=== PATIENT | female | born 1965 | race African-American/Black ===

== ENCOUNTER 2017-09-11 15:15 | Emergency (ER) | payer SELFPAY ==
[2017-09-11 15:18] VITALS: BP 124/88; PULSE 94; RESP 16; TEMP 98.6; O2SAT 98
--- NOTE | 2017-09-11 16:11 | RADRPT ---
EXAM DATE/TIME: 09/11/2017 15:36 [place] COMPARISON: No previous studies available for comparison. INDICATIONS : Left foot pain after dropping object on foot. MEDICAL HISTORY : None. SURGICAL HISTORY : None. ENCOUNTER: Initial ACUITY: 1 week PAIN SCORE: 8/10 LOCATION: Left middle dorsal surface. FINDINGS: The osseous structures are intact. The alignment is anatomic. Note is made of a punctate radiodense foreign body in the webspace between the fourth and fifth digit s. CONCLUSION: 1. No acute fracture identified. 2. Punctate metallic foreign body as above. Mukund Lugo MD on September 11, 2017 at 16:08 Board Certified Radiologist. This report was verified electronically.
[2017-09-11] MEDS ORDERED: DICL75TA PO (16:25)
--- NOTE | 2017-09-11 16:29 | PD ---
HPI Chief Complaint: Injury Time Seen by Provider: 15:43 Travel History International Travel<30 days: No Contact w/Intl Traveler<30days: No Traveled to known affect area: No History of Present Illness HPI 52-year-old female here for evaluation of left foot pain. She reports that 1 week ago she dropped a plastic window blind on her left foot. Since then she has had pain and bruising on the dorsum of the left foot. Pain is throbbing, worse when walking. She denies any puncture wounds. She denies any other injuries and she has no other complaints at this time. [facility] Social History Alcohol Use: No Tobacco Use: No Allergies-Medications (Allergen,Severity, Reaction): Coded Allergies: No Known Allergies (Unverified , 09/11/17) Reported Meds & Prescriptions Reported Meds & Active Scripts Active Diclofenac Sodium DR (Diclofenac Sodium) 75 Mg Tabdr 75 Mg PO BID 10 Days Review of Systems Musculoskeletal: Positive: Pain Skin: Positive Other (positive for bruising, pain) Physical Exam Narrative GENERAL: Well-nourished female in no acute distress SKIN: Warm and dry. Bruising noted to the dorsum of the right foot. Nonerythematous. No puncture wounds noted. CARDIOVASCULAR: Regular rate and rhythm. No murmur appreciated. RESPIRATORY: No accessory muscle use. Clear to auscultation. Breath sounds equal bilaterally. MUSCULOSKELETAL: Skin as noted above with generalized tenderness to palpation of the dorsum of the left foot. The patient intends full range of motion of the lower extremities. 2+ dorsalis pedis pulse. NEUROLOGICAL: Awake and alert. No obvious cranial nerve deficits. Motor grossly within normal limits. Normal speech. Data Data Last Documented VS Vital Signs Date Time Temp Pulse Resp B/P (MAP) Pulse Ox O2 Delivery O2 Flow Rate FiO2 09/11/17 15:18 98.6 94 16 124/88 (100) 98 Orders Orders Foot, Complete ([id number]) (09/11/17 ) Ed Discharge Order (09/11/17 16:25) [facility] Medical Decision Making Medical Screen Exam Complete: Yes Emergency Medical Condition: Yes Medical Record Reviewed: Yes Differential Diagnosis Contusion, hematoma, cellulitis, fracture Narrative Course X-ray imaging reveals no acute bony abnormalities but incidental note was made of a radiopaque density in the interdigital webspace between the fourth and fifth digits which is not at all consistent with her current injury. I discussed these findings with the patient. She appears to have a contusion to her foot. She declines crutches. She is stable for discharge. Diagnosis Primary Impression: Contusion of left foot Additional Instructions: Medication as needed. Take with meals. Ice pack several times a day 20 minutes at a time. Elevate. Rest. Follow-up with primary care physician in one to 2 weeks. Return for any emergent medical conditions. Med/Other Pt SpecificInfo: Prescription(s) given Scripts Diclofenac Sodium (Diclofenac Sodium DR) 75 Mg Tabdr 75 MG PO BID for 10 Days, #20 TAB 0 Refills Prov: Matthew English MD 09/11/17 Disposition: 01 DISCHARGE HOME Condition: Stable Celio Scott Sep 11, 2017 16:29
== END 2017-09-11 16:49 | disposition home or self-care (01) ==
LOC: NEPK 15:15
DX: S90.32XA Contusion of left foot, initial encounter (principal)
CPT/HCPCS: 73630; 99283